=== PATIENT | female | born 1965 | race Caucasian/White ===

== ENCOUNTER 2018-12-30 14:34 | Emergency (ER) | payer MEDICAID | END 2018-12-30 16:00 | disposition home or self-care (01) | LOC: FTE 16:00 | DX: L03.032 Cellulitis of left toe (principal); B35.1 Tinea unguium; E11.9 Type 2 diabetes mellitus without complications; J45.909 Unspecified asthma, uncomplicated; Z79.4 Long term (current) use of insulin | CPT/HCPCS: 99283 ==